=== PATIENT | male | born 1985 | race Hispanic/Latino ===

== ENCOUNTER 2017-11-11 10:51 | Day surgery (SDC) | payer OTHER ==
[2017-11-10] MEDS: CEFAZOLIN SODIUM 1 GM VIAL IVP SCH (11:30)
[2017-11-10 15:07] VITALS: BP 120/63
[2017-11-10 15:19] LABS: BASOPHILS % (AUTO) 0.6 % (0.0-5.0); EOSINOPHILS % (AUTO) 1.6 % (0.0-8.0); HEMATOCRIT 44.9 % (42-54); LYMPHOCYTES % (AUTO) 28.8 % (21.0-51.0); MEAN CORPUSCULAR HEMOGLOBIN 28.1 pg (27.0-33.0); MEAN CORPUSCULAR HGB CONC 34.8 g/dL (32.0-36.0); MEAN CORPUSCULAR VOLUME 80.6 fL (79-99); MONOCYTES % (AUTO) 7.1 % (3.0-13.0); NEUTROPHILS % (AUTO) 61.9 % (40.0-77.0); PLATELET COUNT (AUTO) 264 K/uL (130-400); RED BLOOD CELL COUNT(AUTO) 5.58 MIL/uL (4.50-6.20); RED CELL DISTRIBUTION WIDTH 13.6 % (11.0-15.5); WHITE BLOOD COUNT (AUTO) 5.6 K/uL (4.8-10.8)
[2017-11-10 15:24] LABS: CREATININE 0.9 mg/dL (0.5-1.5); POTASSIUM 3.7 mmol/L (3.5-5.1)
[~2017-11-11] VITALS: Ht 175.3 cm; Wt 77.4 kg
[2017-11-11] VITALS (17 sets, daily range): BP systolic 96–124; BP diastolic 50–78
[2017-11-11] MEDS ORDERED: LACTATED RINGERS 1000ML 1,000 ML IV ONE (11:26)
[2017-11-11] MEDS ORDERED: GLYCOPYRROLATE 0.2 MG/ML 5 ML VIAL ONE (13:12)
[2017-11-11] MEDS ORDERED: LIDOCAINE PF 2% 5ML ABBOJECT ONE (13:12)
[2017-11-11] MEDS ORDERED: DEXAMETHASONE SOD PHOSPHATE 10MG/ML 1ML VIAL ONE (13:12)
[2017-11-11] MEDS ORDERED: MIDAZOLAM HCL 1 MG/ML 2ML VIAL ONE (13:12)
[2017-11-11] MEDS ORDERED: PROPOFOL 10 MG/ML 20ML VIAL IV ONE (13:12)
[2017-11-11] MEDS ORDERED: FENTANYL CITRATE PF 50 MCG/1 ML 2ML VIAL ONE ×2 (13:13→17:43)
[2017-11-11] MEDS ORDERED: EPINEPHRINE 1 MG/ML 30ML VIAL IJ ONE (14:22)
[2017-11-11] MEDS: CEFAZOLIN SODIUM 1 GM VIAL IVP SCH (15:15)
[2017-11-11] MEDS ORDERED: PHENYLEPHRINE HCL 10 MG/ML 1ML VIAL IV ONE (17:05)
[2017-11-11] MEDS ORDERED: EPHEDRINE SULFATE 50 MG/ML AMPULE ONE (17:06)
[2017-11-11] MEDS ORDERED: HYDR-309 PO (19:15)
[2017-11-11] MEDS ORDERED: CEPH500B PO (19:16)
[2017-11-11] MEDS ORDERED: NAPR375T6 PO (19:16)
== END 2017-11-11 19:56 | disposition home or self-care (01) ==
LOC: DAH 10:51
PROVIDERS: ATTEND Orthopaedic Surgery
DX: M75.42 Impingement syndrome of left shoulder (principal); M94.8X1 Other specified disorders of cartilage, shoulder; Z91.013 Allergy to seafood; Z79.899 Other long term (current) drug therapy
CPT/HCPCS: 29806; 29823; 29824; 29826; 36415; 64415; 80048; 85025; A4218; A4565; A4649 ×4; A4930 ×2; A6204; C1713; J0171; J0690; J1100; J2001; J2250; J2370; J2704; J3010; J3490 ×2; J7030; J7120